=== PATIENT | female | born 1990 | race Caucasian/White ===

== ENCOUNTER 2023-01-29 10:46 | Emergency (ER) | payer OTHER, SELFPAY ==
[2023-01-29 10:57] VITALS: BP 126/83; PULSE 93; RESP 18; TEMP 36.8; O2SAT 98; BMI 34.9
[2023-01-29 11:20] LABS: IDNOW Serial# 08D9AD1C; Strep A Nucleic Acid Negative (Negative)
--- NOTE | 2023-01-29 11:36 | ED_ITS ---
HPI - General Adult General Chief complaint: General Medical Stated complaint: Sore throat Time Seen by Provider: 01/29/23 11:22 Source: patient Mode of arrival: ambulatory Limitations: no limitations History of Present Illness HPI narrative: patient is a 32 old female who presents emergency department with symptom onset 2 days ago including sore throat and malaise for throat lozenges, body aches, nausea without vomiting, nasal congestion. Reports her son was treated for strep throat 1 week ago and despite completing treatment is continued to have symptoms, reportedly did test positive. She denies any additional sick contacts. She denies fevers, chills, headache, dizziness, lightheadedness, neck pain, neck stiffness, chest pain, shortness of breath, difficulty breathing, vomiting, abdominal pain, genitourinary symptoms, constipation, diarrhea. Related Data Previous Rx's Medication Instructions Recorded amoxicillin 500 mg capsule 500 mg PO BID #20 caps 01/29/23 Allergies Allergy/AdvReac Type Severity Reaction Status Date / Time No Known Allergies Allergy Verified 01/29/23 10:56 Review of Systems Review of Systems: Yes all other systems are reviewed and are negative [facility] Past Medical History Attestation statement: The following information was validated with the patient. Source: old records reviewed Social History Social History Advance Directives: No Advance Directives Information Provided: No Physical Exam ED Vital Signs: Vital Signs - 24 hr 01/29/23 10:57 Temperature 98.3 F Pulse Rate 93 Respiratory Rate 18 Blood Pressure 126/83 Pulse Oximetry 98 Oxygen Delivery Method Room Air BMI result Body Mass Index 34.9 Appearance: Alert.?Oriented to person, place and time. No acute distress.? Normal affect. Eyes: Pupils equal, round and reactive to light.? ENT: Pharynx Erythematous 2+ tonsillar hypertrophy symmetrically, uvula midline, no trismus, no drooling, no exudates. Managing secretions. TM normal bilaterally. Neck: Normal inspection.? Neck supple.?? positive Cervical lymphadenopathy CVS: Heart sounds normal. Normal heart rate and rhythm.? Pulses normal.?? Respiratory: No respiratory distress.? Lung sounds clear to auscultation bilaterally?? Abdomen: Soft and non-tender. Normoactive bowel sounds. ? Skin: Skin warm and dry.? Normal skin color.? Extremities: No lower extremity edema.? Neuro: Moves all extremities spontaneously. Sensation intact bilaterally. Ambulates with normal steady gait. Medical Decision Making Medical Decision Making [facility] Narrative: patient is a 32 old female who presents emergency department for evaluation of multiple symptoms as per HPI. At the time my examination she appears fatigued but is overall well in appearance nontoxic afebrile without tachycardia tachypnea or hypoxia. She speaking clear full sentences. No respiratory distress. Physical examination is not consistent with peritonsillar retropharyngeal abscess, clinically have low suspicion for pneumonia. Suspect viral syndrome versus strep pharyngitis given recent close contact with her son. Obtained testing, COVID- 19 influenza testing are negative, strep is negative today, discussed these findings with patient, will treat with course of amoxicillin for suspected bacterial pharyngitis. Outpatient follow-up with PCP. Stable for discharge. Differential Diagnosis Differential Diagnoses: The differential diagnosis associated with the presentation includes (see narrative above for further detail) Lab Data [facility] Lab Attestation statement: I reviewed the patient's lab results. ( see narrative above for further detail) Labs: Lab Results 01/29/23 01/29/23 Range/Units 11:07 11:55 COVID-19 (JS) Negative (Negative) COVID-19 Clin Com See Note Influenza Type A (JAMIE) Negative (Negative) Influenza Type B (JAMIE) Negative (Negative) Influenza A & B Note See Note S. pyogenes GrpA JAMIE Negative (Negative) Independent Historian Clinical information obtained from an independent historian. History obtained from or confirmed by: Spouse ( present who confirms history) Tests considered The following testing was considered but not selected: CT soft tissue neck, clinically low suspicion for peritonsillar retropharyngeal abscess Discharge Plan Discharge Clinical Impression: Pharyngitis Patient Disposition: Home, Self-Care Instructions: Pharyngitis (ED) Additional Instructions: given your contact with your son was recently tested positive for strep throat, and your current symptoms I have sent a course of antibiotic to your pharmacy. Please complete the entire course. Be sure to rest, stay well hydrated drinking plenty of fluids, eat small frequent meals. Tylenol/ibuprofen can be used as needed for fever/pain. [id number] cold medications may be helpful as well for symptoms. Saline nasal spray, humidifier may be helpful for nasal congestion. You may return to the emergency department with any new or worsening symptoms or concerns. Follow-up with your primary care provider as needed. Prescriptions: New amoxicillin 500 mg capsule 500 mg PO BID Qty: 20 0RF
[2023-01-29 12:21] LABS: COVID-19 Test Negative (Negative); IDNOW Serial# 08D9AD1C
[2023-01-29 12:26] LABS: IDNOW Serial# BCCEAD1C; Influenza A Negative (Negative); Influenza B2 Negative (Negative)
== END 2023-01-29 12:38 | disposition home or self-care (01) ==
PROVIDERS: Nurse Practitioner Family; Emergency Provider Emergency Medicine; PCP Internal Medicine
DX: J02.9 Acute pharyngitis, unspecified (principal); R53.81 Other malaise; R52 Pain, unspecified; R11.0 Nausea; Z11.52 Encounter for screening for COVID-19
CPT/HCPCS: 87502; 87635; 87651; 99282; 99283